=== PATIENT | male | born 1955 | race Caucasian/White ===

== ENCOUNTER 2021-04-16 12:23 | Emergency (ER) | payer OTHER ==
[~2021-04-16] VITALS: Ht 182.9 cm; Wt 77.1 kg
[2021-04-16] MEDS ORDERED: ALTACE2.5 MG PO (12:33)
[2021-04-16] MEDS ORDERED: PLAVIX75 MG PO (12:33)
[2021-04-16] MEDS ORDERED: LIPITOR20 MG PO (12:33)
[2021-04-16] MEDS ORDERED: VALTREX1000 MG PO (12:33)
[2021-04-16] MEDS ORDERED: TOPROL XL50 M1 PO (12:34)
[2021-04-16] MEDS ORDERED: DETROL LA2 MG PO (12:34)
== END 2021-04-16 16:06 | disposition home or self-care (01) ==
LOC: ER 12:23
DX: N20.0 Calculus of kidney (principal); N13.1 Hydronephrosis with ureteral stricture, not elsewhere classified